=== PATIENT | female | born 1995 | race Caucasian/White ===

== ENCOUNTER 2017-06-20 11:16 | Emergency (ER) | payer MEDICAID ==
--- NOTE | 2017-06-20 12:09 | OBHP ---
Datetime: 06/20/2017 11:49 IP Adm Impression: Term, intrauterine ; No Active Labor; Intact Membranes IP Admit Plan: Discharge home Admit Comment, IP Provider: 21 y.o. , LMP 09/18/16, LAURENT 06/25/17, EGA 39w 2d confirmed by son o 12/03/16 at 11w 4d, c/o lower abdominal pressure and low back pain x 2 days. Currently described as p ressure, pain scale 7/10. Not taken any meds. Passed mucous plug this morning 0400 hours. Denies LOF , VB. (+) AFM. care: [facility] - noted for 1) Rh negative; received Rhogam at 28 weeks. 2) Hgb - S/P counseling; FOB is , was not tested; 3) E.coli UTI 10/2016 - treated; 4) Bronchi tis exacerbation - 02/2017 - treated with zithromaz, steriods and albuterol. P Ob: 2012, VTOP x 1, first trimestre; no complications. 01/2015, Spont Ab at 7weeks, no D_C; no c omplications P EDUCATION PROGRAM COORDINATOR: 11x monthly x 7. Denies STIs or abnormal pap PMH: Bornichitis since ""; most recent exacerbation as above. PSH: denies NKDA Meds: PNV - QD; albuterol inh - PRN Soc Hx: former tobacco use: stopped at beginning of ; 6-7 cig/days x 4 yrs. Denies curre nt illicit drug use (chart review revealed (+) cannabinoids 10/2016); denies EtOH use. LIves with her mother; FOB involved. Unemployed. Fam Hx: Mother alive 55 y.o. - DM. Father alive 61 y.o. - no med issues. no known fam h/o cance r P.E.: as above. WD in mild discomfort. Awake, alert, oriented to time, person and place. Pleasan t and cooerative. FOB present Assessment: 21 y.o. P0020, 39w 2d, latent phase of labor. GBS (-). Rh (-) - S/P rhogam. 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 Category 1 tracing. Clinically stable. Plan: 1) Discharge home 2) Ambulate for a minimum of 2 hours, then can return to L_D 3) Reviewed S/S labor Pelvic Type - PN: Adequate Extremities - PN: Normal Abdomen - PN: Normal Back - PN: Normal Breast - PN: Not Done Lungs - PN: Normal Heart - PN: Normal Thyroid - PN: Not Done Neurologic - PN: Normal HEENT - PN: Normal General - PN: Normal Presentation-Admit: Vertex FHR - Baseline A Provider: 120 Membranes, Provider: Intact Contraction Comments Provider: infrequent Comments, ACOG Physical Exam: Abdomen: Gravid. Soft. Fundal height 39 cm All other systems reviewed and are negative Gestation - Est Wks by US: 39w 2d IP Hx Assessment: The History has been Reviewed and is Current EGA AdmitDate IP: 39.2 Vital Signs Provider: Reviewed IP Chief Complaint: Maternal discomfort NICHD Variability Prov Fetus A: Moderate 6-25bpm NICHD Accel Fetus A IP Provider: 15X15 FHR Category Provider Fetus A: Category I NICHD Decel Fetus A IP Provider: None Dilatation, Provider: 3 Effacement, Provider: 40 Station, Provider: -3 Genitourinary Exam: Normal DTRs - PN: Not Done
[2017-06-20 23:29] VITALS: BP 113/63; PULSE 92; O2SAT 99
== END 2017-06-20 11:47 | disposition home or self-care (01) ==
LOC: C.EROB 11:16
DX: O75.89 Other specified complications of labor and delivery (principal); Z3A.39 39 weeks gestation of pregnancy

== ENCOUNTER 2017-06-26 05:56 | Inpatient (IN) | payer MEDICAID ==
[2017-06-26] MEDS ORDERED: Lactated Ringer's 1,000 ML IV SCH (06:30)
--- NOTE | 2017-06-26 06:54 | OBADHP ---
Datetime: 06/26/2017 06:45 Admit Comment, IP Provider: 21 y.o. , LMP 09/18/16, LAURENT 06/25/17, EGA 40.1 wks GA confirmed by sono 12/03/16. pt reports big andrea of fluid clear at 5am, , pt erports contraction pain 5am every 2-3 minutes, 03/04 intesntiy, denies vb and reports normal movements. care: [facility]- - noted for 1) Rh negative; received Rhogam at 28 weeks. 2) Hgb - S/P counseling; FOB is , was not tested; 3) E.coli UTI 10/2016 - treated; 4) Bronchitis exacerbation - 02/2017 - treated with zi thromaz, steriods and albuterol. P Ob: 2012, VTOP x 1, first trimestre; no complications. 01/2015, Spont Ab at 7weeks, no D_C; no c omplications P SENIOR PRODUCT ENGINEER: 11x monthly x 7. Denies STIs or abnormal pap PMH: Bornichitis since ""; most recent exacerbation as above. PSH: denies NKDA Meds: PNV - QD; albuterol inh - PRN Soc Hx: former tobacco use: stopped at beginning of ; 6-7 cig/days x 4 yrs. Denies curre nt illicit drug use (chart review revealed (+) cannabinoids 10/2016); denies EtOH use. LIves with her mother; FOB involved. Unemployed. Fam Hx: Mother alive 55 y.o. - DM. Father alive 61 y.o. - no med issues. no known fam h/o cance r P.E.: as above. WD in mild discomfort. Awake, alert, oriented to time, person and place. Pleasan t and cooerative. FOB present, see above Assessment: 21 y.o. P0020 at 40.1 wks Plan: 1. Admit to L+D 2. NPO, IVF 3. Admission labs 4. Anethesia prn 5. scds Pelvic Type - PN: Adequate Extremities - PN: Normal Abdomen - PN: Normal Back - PN: Normal Breast - PN: Not Done Lungs - PN: Normal Heart - PN: Normal Thyroid - PN: Normal Neurologic - PN: Normal HEENT - PN: Normal General - PN: Normal Weight - Estimated: 3500 Presentation-Admit: Vertex FHR - Baseline A Provider: 120 Amniotic Fluid Color, Provider: Clear Membranes, Provider: Ruptured Gestation - Est Wks by US: 40.1 IP Hx Assessment: The History has been Reviewed and is Current Vital Signs Provider: Reviewed; Within Normal Limits IP Chief Complaint: Suspected ruptured membranes NICHD Variability Prov Fetus A: Moderate 6-25bpm NICHD Decel Fetus A IP Provider: None Dilatation, Provider: 5 Effacement, Provider: 60 Station, Provider: -2 Genitourinary Exam: Normal DTRs - PN: Normal EGA AdmitDate IP: 40.1 IP Adm Impression: Term, intrauterine IP Admit Plan: Admit to unit Datetime: 06/20/2017 11:49 Contraction Comments Provider: infrequent Comments, ACOG Physical Exam: Abdomen: Gravid. Soft. Fundal height 39 cm All other systems reviewed and are negative NICHD Accel Fetus A IP Provider: 15X15 FHR Category Provider Fetus A: Category I
[2017-06-26 07:40] LABS: BASO % 0.5 % (0.0-2.0); EOS # 0.3 K/uL (0.0-0.7); EOS % 3.1 % (0.0-4.0); HEMATOCRIT 37.1 % (34.0-47.0); LYMPH # 2.4 K/uL (1.0-4.3); LYMPH % 25.4 % (20.0-40.0); MEAN CORPUSCULAR HEMOGLOBIN 30.7 pg (27.0-31.0); MEAN CORPUSCULAR HGB CONC 34.1 g/dL (33.0-37.0); MEAN PLATELET VOLUME 11.2 fL (7.2-11.7); MONO # 0.7 K/uL (0.0-0.8); MONO % 7.4 % (0.0-10.0); NRBC % 0.1 % (0.0-2.0); RED CELL DISTRIBUTION WIDTH 13.7 % (11.5-14.5); WHITE BLOOD COUNT 9.4 K/uL (4.8-10.8)
[2017-06-26] MEDS ORDERED: Oxytocin 30 UNIT 500 ML IV SCH (07:45)
[2017-06-26] MEDS ORDERED: Oxytocin 30 UNIT 30 UNITS/500 ML BAG IV SCH ×2 (07:45→09:04)
[2017-06-26 07:48] LABS: CHLORIDE 108 mmol/L (98-107)
[2017-06-26 07:49] LABS: POTASSIUM 3.8 mmol/L (3.6-5.2); SODIUM 138 mmol/L (132-148)
[2017-06-26 07:51] LABS: AST/SGOT 21 U/L (14-36); BILIRUBIN,TOTAL 0.3 mg/dL (0.2-1.3); BLOOD UREA NITROGEN 6 mg/dL (7-17); CARBON DIOXIDE 19 mmol/L (22-30); GFR AFRICAN-AMERICAN > 60
[2017-06-26 07:52] LABS: ALKALINE PHOSPHATASE 165 U/L (38-126); ALT/SGPT 28 U/L (9-52); GLUCOSE,RANDOM 78 mg/dL (65-105); RBC URINE 4 /hpf (0-3); URINE BACTERIA OCC (<OCC); URINE BILIRUBIN NEGATIVE (NEGATIVE); URINE BLOOD 3+ (NEGATIVE); URINE COLOR Yellow (YELLOW); URINE GLUCOSE (UA) NORMAL (Normal); URINE KETONE NEGATIVE (NEGATIVE); URINE LEUKOCYTE ESTERASE 2+ Leu/uL (Negative); URINE PROTEIN NEGATIVE (NEGATIVE); URINE UROBILINOGEN NORMAL mg/dL (0.2-1.0); WBC URINE 20 /hpf (0-5)
[2017-06-26 08:42] LABS: INR 0.9
[2017-06-26] MEDS ORDERED: Oxytocin 30 UNIT 30 UNITS/500 ML BAG IV ONE (08:52)
[2017-06-26] MEDS ORDERED: Bupivacaine 0.125%/FentaNYL 200 ML EPI ONE (10:11)
[2017-06-26] MEDS ORDERED: Dextrose 5%/Lactated Ringer's 1,000 ML IV SCH (12:15)
--- NOTE | 2017-06-26 12:35 | OBPN ---
Datetime: 06/26/2017 12:27 Membranes, Provider: Ruptured FHR - Baseline A Provider: 105 Gestation - Est Wks by US: 40w 1d Presentation-Admit: Vertex IP Progress Note Comment: Patient received in LDR#1: first evaluated and examined at 0740 hours. Cer vical exam then 5/50/-3; posterior and medium to soft consistency. Order was written for Pitocin for augmentaiton. FHR noted for occasional decelerations - early. Patient now S/P epidural; very comfortable Cervical exam as above. Pitocin at 6 mU. IPUC and ISE placed without incident. Assessment: 21 yo P0, 40w 1d, PROM on pitocin for augmentaiton. GBS (-). D/W patient (FOB and her mother also present), rationale for IUPC and ISE. Patient expressed an understanding; no questions of fered. Category 1 traicng. Clinically stble. Plan: 1) Continue present management 2) Anticipate vaginal delivery NICHD Accel Fetus A IP Provider: 15X15 FHR Category Provider Fetus A: Category I NICHD Variability Prov Fetus A: Moderate 6-25bpm Dilatation, Provider: 6 Effacement, Provider: 60 Station, Provider: -3 NICHD Decel Fetus A IP Provider: Early Datetime: 06/26/2017 06:45 Amniotic Fluid Color, Provider: Clear Weight - Estimated: 3500 Vital Signs Provider: Reviewed; Within Normal Limits Datetime: 06/20/2017 11:49 Contraction Comments Provider: infrequent
[2017-06-26] MEDS ORDERED: Sodium Citrate/Citric Acid 15 ml Sol PO ONE (18:35)
[2017-06-26] MEDS ORDERED: cefOXitin IV 2 gm in Dextrose 2 GM/50 ML BAG IVPB ONE (18:46)
[2017-06-26] MEDS ORDERED: Sodium Citrate/Citric Acid 15 ml Sol ONE (18:46)
--- NOTE | 2017-06-26 18:50 | OBPN ---
Datetime: 06/26/2017 18:06 IP Progress Impression: Non-reassuring heart rate Membranes, Provider: Ruptured Contraction Comments Provider: 1-3 FHR - Baseline A Provider: 120 Gestation - Est Wks by US: 40w 1d Presentation-Admit: Vertex IP Progress Note Comment: FHR noted for prolonged deceleration: 90 bpm x 7 min Patient received in LDR#1, left lateral position, oxygen by mask. Pitocin had been stopped. Cervic al exam as above. FHR improved to 120 bpm Patient and FOB provided with two options: continue with trial of labor; or proceed with abdominal delivery. Their questions were answered as the were left to confer in private 1840 hours: patient has decided to proceed with abdominal delivery. Risks, and potential complicat ions were discussed. Again, all questions were answered. Consents were signed, dated, witnessed and p laced in the chart. FHR remains in the 120 bpm; (+) moderate variability; (+) accelerations. Assesment: 21 y.o. P0, 40w 1d, PROM x 17 hours, prolonged decelartion, recovered, remote fro m delivery for primary . Category 1 tracing. Plan: 1) Abdominal prep and shave 2) Mefoxin 3) Notify anesthesia 4) Notify peds 5) scallop binder to the O.R. NICHD Accel Fetus A IP Provider: 15X15 FHR Category Provider Fetus A: Category III NICHD Variability Prov Fetus A: Moderate 6-25bpm Dilatation, Provider: 6 Effacement, Provider: 80 Station, Provider: 1 NICHD Decel Fetus A IP Provider: Prolonged
[2017-06-26] MEDS ORDERED: Lidocaine 2% MPF (5 ml) Inj ONE ×3 (18:57→20:06)
[2017-06-26] MEDS ORDERED: Bupivacaine HCl 0.25% PF (10 ml) Inj ONE (18:57)
[2017-06-26] MEDS: cefOXitin IV 2 gm in Dextrose 2 GM/50 ML BAG IVPB SCH (19:06)
[2017-06-26] MEDS ORDERED: Oxytocin 20 units in LR 2,000 ML IV ONE (19:11)
[2017-06-26] MEDS ORDERED: Oxytocin 10 Units/ml Inj ONE (19:49)
[2017-06-26] MEDS ORDERED: Morphine 1 mg/ml preservative-free Inj(Duramorph) ONE (19:53)
[2017-06-26] MEDS ORDERED: Ketamine 50 mg/ml Inj (10 ml) ONE (20:09)
[2017-06-26] MEDS ORDERED: Midazolam 2 MG/2 ML VIAL ONE (20:09)
[2017-06-26] MEDS ORDERED: Naloxone 0.4 mg/ml Inj (Adult) IVP PRN (20:44)
[2017-06-26] MEDS ORDERED: DiphenhydrAMINE 50 mg/ml Inj IVP PRN (20:44)
[2017-06-26] MEDS ORDERED: Acetaminophen IV 1,000 MG in Premixed IV 1 EA IV STA (20:45)
[2017-06-26] MEDS ORDERED: Oxycodone/Acetaminophen 5/325 mg Tab PO PRN (21:14)
--- NOTE | 2017-06-26 21:37 | PCM.SURG1 ---
Surgeon's Initial Post Op Note - Surgeon's Notes Surgeon: Xi Lopez MD Optical Coating Technician: Noe Fajardo MD Type of Anesthesia: Other (Epidural) Pre-Operative Diagnosis: Non reassuring heart tracing; prolonged deceleration; remote from delivery Operative Findings: Live male , CHELSEA position, weight 7lb 14oz, 's 9/ 9. Cord pH 7.25. Normal uterus; normal ovaries and fallopian tubes, bilaterally Post-Operative Diagnosis: Same Operation Performed: Primary transverse lower uterine segment section Specimen/Specimens Removed: none Estimated Blood Loss: EBL {In ML}: 800 (U.O. 500 mL; 2000 mL LR, 1st litre with 20 units pitocin) Blood Products Given: N/A Drains Used: No Drains Post-Op Condition: Good Date of Surgery/Procedure: 06/26/17 Time of Surgery/Procedure: 20:30
--- NOTE | 2017-06-26 22:35 | OBDS ---
DELIVERY PERSONNEL Delivery Doctor: Franco Lopez MD Scrub Nurse: Love Solares Brush Hand: Lynette Bain RN Anesthesiologist: Franco Bo MD MATERNAL INFORMATION Delivery Anesthesia: Epidural Medications in Delivery: pitocin 40 units IV Estimated Blood Loss (ml): 800 Placenta Cultured: No Maternal Complications: None Provider Comments: Uncomplicated primary LTCS with atraumatic delivery of live male infant, peng TRAN ght 7lb 14oz, Apgars 9/9; cord pH 7.25 LABOR SUMMARY EDC: 06/25/2017 00:00 No. Babies in Womb: 1 Attempted: No Labor Anesthesia: Epidural LABOR INFORMATION Reason for Induction: Not Applicable Onset of Labor: 06/26/2017 05:05 Oxytocin: Augmentation Group B Beta Strep: Negative Antibiotics # of Doses: 0 Steroids Given: None Reason Steroids Not Administered: Not Applicable MEMBRANES Membranes Rupture Method: Spontaneous Rupture of Membranes: 06/26/2017 05:00 Length of Rupture (hrs): 14.73 Amniotic Fluid Color: Clear Amniotic Fluid Amount: Small Amniotic Fluid Odor: Normal STAGES OF LABOR Stage 3 hrs: 0 Stage 3 min: 1 Total Time in Labor hrs: 14 Total Time in Labor min: 40 CSECTION DELIVERY Primary Indication: Nonreassuring Status CSection Urgency: Non Elective CSection Incidence: Primary Labor: Labor Elective: Nonelective CSection Incision: Lower Uterine Transverse BABY A INFORMATION Infant Delivery Date/Time: 06/26/2017 19:44 Method of Delivery: Born in Route : No : N/A Forceps: N/A Vacuum Extraction: N/A Shoulder Dystocia : No SHOULDER DYSTOCIA BABY A Delivery Date/Time: 06/26/2017 19:44 PRESENTATION/POSITION BABY A Presentation: Cephalic PLACENTA INFORMATION BABY A Placenta Delivery Time : 06/26/2017 19:45 Placenta Method of Delivery: Manual Removal Placenta Status: Delivered SCORES BABY A Heart Rate 1 min: >100 bpm Resp Effort 1 min: Good Cry Reflex Irritability 1 min: Cough or Sneeze or Pulls Away Muscle Tone 1 min: Active Motion Color 1 min: Body [place], Extremities Blue SCORE 1 MIN: 9 Heart Rate 5 min: >100 bpm Resp Effort 5 min: Good Cry Reflex Irritability 5 min: Cough or Sneeze or Pulls Away Muscle Tone 5 min: Active Motion Color 5 min: Body [place], Extremities Blue SCORE 5 MIN: 9 INFANT INFORMATION BABY A Gestational Age at Delivery: 40.0 Gestational Status: Term Infant Outcome : Liveborn Infant Condition : Stable Infant Sex: Male IDENTIFICATION/MEDS BABY A ID Band Number: [id number] ID Band Location: Left Leg; Left Arm Sensor Applied: Yes Sensor Number: [id number] Sensor Location : Cord Clamp Vitamin K Given : Aquamephyton 1 mg IM; Left Thigh Erythromycin Given: Given Both Eyes WEIGHT/LENGTH BABY A Birthweight (gms): 3560 Weight (lb): 7 Weight (oz): 14 Length Inches: 20.00 Infant Length cms: 50.8 CORD INFORMATION BABY A Nuchal Cord : N/A Cord Blood Taken: Yes ASSESSMENT BABY A Complications: Multiple Variable Decels Physical Findings at Delivery: Caput Succedaneum Infant Respirations: Appears Normal Pattern Setter/ALS Called : Yes Care By: dr snow Transferred To: Nursery
[2017-06-27] MEDS: Oxycodone/Acetaminophen 5/325 mg Tab PO PRN ×3 (01:59→20:16)
[2017-06-27] MEDS: cefOXitin IV 2 gm in Dextrose 2 GM/50 ML BAG IVPB SCH ×2 (02:01→15:10)
[2017-06-27 08:06] LABS: HEMATOCRIT 34.4 % (34.0-47.0); MEAN CELL VOLUME 89.7 fL (81.0-99.0); MEAN CORPUSCULAR HEMOGLOBIN 30.6 pg (27.0-31.0); MEAN CORPUSCULAR HGB CONC 34.2 g/dL (33.0-37.0); MEAN PLATELET VOLUME 10.6 fL (7.2-11.7); WHITE BLOOD COUNT 10.5 K/uL (4.8-10.8)
[2017-06-27 08:19] VITALS: RESP 18
[2017-06-27] MEDS: Prenatal Multivit/Folic Acid/Iron Tab PO SCH (09:29)
[2017-06-27] MEDS: Simethicone 80 mg Chewtab PO SCH ×4 (09:29→22:40)
--- NOTE | 2017-06-27 10:17 | OBPPN ---
Datetime: 06/27/2017 10:14 PP Pain Prov: Within normal limits PP Nausea Prov: Denies PP Flatus Prov: Yes PP BM Prov: No PP Breasts Prov: Normal PP Heart Prov: Normal PP Lungs Prov: Normal PP Abdomen/Uterus Prov: Normal PP Lochia Prov: Normal PP Vulva/Perineum Prov: Normal PP CVA Tenderness Prov: Normal PP Extremities Prov: Normal PP C/S Incision Prov: Normal PP Progress Prov: Normal PP Impression Prov: Normal progression PP Plan Prov: Continue present management PP Progress Note Prov: Pt seen and examined and reports pain is controlled with medication. Pt repor ts ambuating, voiding, passing flatus, no BM. Pt denies any fever, chills, nausea, vomiting, CP, SOB. lightheadness, dizzyness. Pt is breast and bottle feeding and denies any feelings of sadness or depr ession. Pt tolerating diet. VSS PE: GEN: NAD, AAO x 3 BREAST: NT, Non engorged b/l RES: CTAB/l CVS: RRR, +S1/S2 ABD: soft, NT/ND, +BS. No guarding, no rebound tenderness, no rigidity FUNDUS: Firm, at level of umbiliucs INCISION C/D/I healing well douglas intact VE: Minimal lochia, non fouls smelling EXT: no calf tenderness, negative mason's sign A/P s/p PLTCS POD #1 doingl well -pain managment -d/c soto -advance diet as tolerated -encourage ambuation with assistance as needed -am labs -cont current managment Vital Signs Provider PP: Reviewed; Within Normal Limits
[2017-06-28] MEDS: Oxycodone/Acetaminophen 5/325 mg Tab PO PRN ×4 (05:28→20:11)
[2017-06-28] MEDS: Simethicone 80 mg Chewtab PO SCH ×4 (10:23→22:40)
--- NOTE | 2017-06-28 11:25 | OBPPN ---
Datetime: 06/28/2017 11:22 PP Pain Prov: Within normal limits PP Nausea Prov: Denies PP Flatus Prov: Yes PP BM Prov: Yes PP Breasts Prov: Normal PP Heart Prov: Normal PP Lungs Prov: Normal PP Abdomen/Uterus Prov: Normal PP Lochia Prov: Normal PP Vulva/Perineum Prov: Normal PP CVA Tenderness Prov: Normal PP Extremities Prov: Normal PP C/S Incision Prov: Normal PP Progress Prov: Normal PP Impression Prov: Normal progression PP Plan Prov: Continue present management PP Progress Note Prov: Pt seen and examined and reports pain is controlled with medication. Pt repor ts ambuating, voiding, passing flatus, no BM. Pt denies any fever, chills, nausea, vomiting, CP, SOB. lightheadness, dizzyness. Pt is breast and bottle feeding and denies any feelings of sadness or depr ession. VSS PE: GEN: NAD, AAO x 3 BREAST: NT, Non engorged b/l RES: CTAB/l CVS: RRR, +S1/S2 ABD: soft, NT/ND, +BS. No guarding, no reboudn tenderness, no rigidity FUNDUS: Firm, below level of umbiliucs INCISCION C/D/I healing well douglas intact VE: Minimal lochia, non fouls smelling EXT: no calf tenderness, negative mason's sign A/P s/p PLTCS POD #2 doing well -pain managment -regular diet -encourage ambuation with assistance as needed -cont current managment -anticipate d/ rafal am Vital Signs Provider PP: Reviewed; Within Normal Limits
[2017-06-28] MEDS: Prenatal Multivit/Folic Acid/Iron Tab PO SCH (14:01)
[2017-06-29] MEDS: Oxycodone/Acetaminophen 5/325 mg Tab PO PRN ×2 (03:29→09:59)
[2017-06-29 08:43] VITALS: BP 109/70; PULSE 94; TEMP 97.5; O2SAT 98
[2017-06-29] MEDS: Simethicone 80 mg Chewtab PO SCH (09:17)
[2017-06-29] MEDS: Prenatal Multivit/Folic Acid/Iron Tab PO SCH (09:17)
--- NOTE | 2017-06-29 10:53 | OBPPN ---
Datetime: 06/29/2017 10:44 PP Pain Prov: Within normal limits PP Nausea Prov: Denies PP Flatus Prov: Yes PP BM Prov: No PP Breasts Prov: Normal PP Heart Prov: Normal PP Lungs Prov: Normal PP Abdomen/Uterus Prov: Normal PP Lochia Prov: Normal PP Vulva/Perineum Prov: Not Done PP CVA Tenderness Prov: Normal PP Extremities Prov: Normal PP C/S Incision Prov: Normal PP Progress Prov: Not Applicable PP Comments Phys Exam Prov: Abdomen: Obese; softly distended; (+) ABS. Fundus firm, minimally stable , 1 FB below umbilicus. Incision with douglas - clean, dry, intact. Minimal lochia rubra All other systems reviewed and are negative PP Impression Prov: Normal progression PP Plan Prov: Discharge PP Progress Note Prov: Patient receivedin bed in room 461; evaluated at approximately 0800 hours; FO B present. Bottlefeeidng only; not interested in pumping breasts. Reports incisional pain, 8/10; re lieved with pain meds, pain scale decreased to 4/10. Reportedly ambulating; voiding without difficul ty. P.E.: as above. Mildy obese, in NAD. Awake, alert, oriented to time, person and place. Cooperative - POD#1 H/H 11.7/34.4. Rh (-); received Rhogam Assessment: POD#3, 21 y. P1, S/P primary LTCS - failed YOAN with prolonged deceleration. Af ebrile, vital signs stable. Returned GI and functions. Rh(-) - S/P Rhogam. Intereseted in oral co ntraceptives. Clinically stable. Plan: 1) Discharge home 2) See full discharge instrucitons Vital Signs Provider PP: Reviewed; Within Normal Limits
--- NOTE | 2017-06-29 10:55 | OBDCSUM ---
Datetime: 06/29/2017 10:52 Discharged to, Provider: Home Follow up at, Provider: [facility] Disch Instr Activity: Normal activity; May be up to bathroom; May be up for meals; May Shower Disch Instr Diet: Regular Discharge Instructions, Provider: Routine instructions given Discharge Diagnosis, Provider: Term Delivered Follow up in weeks, Provider: 07/03/17 Contraception discussed, Prov: Yes Disch Activity Restrictions: No exercising; No lifting; No sexual activity; Nothing in vagina - Inte rcourse, tampons, douche Discharge Diagnosis Prov Other: Status post primary section Contraception counseling Contraception after Delivery: Control Pill/Patch
== END 2017-06-29 15:15 | disposition home or self-care (01) | DRG 370 ==
LOC: C.EROB 05:56 → C.4D 06:25 → C.4M 23:15
PROVIDERS: ADMIT Obstetrics & Gynecology; ATTEND Obstetrics & Gynecology
PROC: 10D00Z1 Extraction of Products of Conception, Low, Open Approach (ICD-10-PCS; principal; 2017-06-26)
DX: O76 Abnormality in fetal heart rate and rhythm complicating labor and delivery (principal); O99.323 Drug use complicating pregnancy, third trimester; O42.02 Full-term premature rupture of membranes, onset of labor within 24 hours of rupture; O99.213 Obesity complicating pregnancy, third trimester; O36.0930 Maternal care for other rhesus isoimmunization, third trimester, not applicable or unspecified; F12.90 Cannabis use, unspecified, uncomplicated; O66.40 Failed trial of labor, unspecified; Z3A.40 40 weeks gestation of pregnancy; Z37.0 Single live birth